=== PATIENT | male | born 2000 | race Caucasian/White ===

== ENCOUNTER 2024-08-06 21:09 | Observation (INO) ==
[2024-08-06 21:35] LABS: ABS Eosinophils 0.1 10^3/uL (0.0-0.5); ABS Lymphocytes 2.3 10^3/uL (1.0-4.8); ABS Monocytes 0.6 10^3/uL (0.0-1.1); ABS Neutrophils 4.7 10^3/uL (1.5-7.6); ABS Nucleated RBC 0.01 10^3/ul; Eosinophil % 1.5 %; Hematocrit 43.4 % (38-53); Hemoglobin 15.1 g/dL (13.2-16.3); Lymphocyte % 29.1 %; Mean Corpuscular Hemoglobin 31.7 pg (27-33); Mean Corpuscular Hgb Conc 34.9 g/dL (31-36); Mean Platelet Volume 7.4 fL (7.5-11.2); Nucleated Red Blood Cells % 0.1 %/100WBC (0.0-0.8); Platelet Count 210 10^3/uL (150-450); Red Blood Count 4.77 10^6/uL (4.06-5.63); Red Cell Distribution Width 12.9 % (12-17); White Blood Count 7.8 10^3/uL (3.6-10.2)
[2024-08-06 21:43] LABS: INR 1.21 (0.85-1.14)
[2024-08-06 21:52] LABS: High Sens Troponin Baseline < 3 pg/mL (<20)
[2024-08-06 21:58] LABS: ALT 17 U/L (7-52); AST 19 U/L (13-39); Albumin 4.6 g/dL (3.2-5.2); Albumin/Globulin Ratio 2.2 (1-3); Alkaline Phosphatase 54 U/L (35-149); Anion Gap 8 mmol/L (2-16); Blood Urea Nitrogen 9 mg/dL (6-24); CO2 Carbon Dioxide 27 mmol/L (22-32); Calcium 9.6 mg/dL (8.6-10.3); Chloride 101 mmol/L (101-111); Creatinine, Serum 0.82 mg/dL (0.67-1.17); Globulin 2.1 g/dL (2-4); Glucose 117 mg/dL (70-100); Potassium 3.8 mmol/L (3.5-5.0); Sodium 136 mmol/L (135-145); Total Bilirubin 0.7 mg/dL (0.2-1.0); Total Protein 6.7 g/dL (6.4-8.9); eGFR CKD-EPI 127.4 (>60)
[2024-08-06 23:03] LABS: High Sensitivity Troponin 1 Hr < 3 pg/mL (<20)
[2024-08-07 00:19] LABS: Lipase 11 U/L (11.0-82.0)
[2024-08-07] MEDS ORDERED: Polyethylene Glycol 3350 17 GM PACKET PO PRN (00:51)
[2024-08-07] MEDS ORDERED: Sulfur Hexaflouride MICROSPHR 25 MG VIAL IV PRN (00:58)
[2024-08-07] MEDS: Pantoprazole VIAL 40 MG VIAL IV SCH (01:33)
[2024-08-07 06:18] LABS: ABS Eosinophils 0.2 10^3/uL (0.0-0.5); ABS Monocytes 0.6 10^3/uL (0.0-1.1); ABS Neutrophils 4.2 10^3/uL (1.5-7.6); Eosinophil % 2.3 %; Hemoglobin 14.3 g/dL (13.2-16.3); Lymphocyte % 28.1 %; Mean Corpuscular Hemoglobin 31.9 pg (27-33); Mean Corpuscular Volume 91.2 fL (80-97); Mean Platelet Volume 7.5 fL (7.5-11.2); Platelet Count 198 10^3/uL (150-450)
[2024-08-07 07:23] LABS: TSH Ultra Thyroid Stim Horm 1.42 mcIU/mL (0.34-5.60)
[2024-08-07 07:44] LABS: Anion Gap 8 mmol/L (2-16); Blood Urea Nitrogen 10 mg/dL (6-24); C Reactive Protein < 1.00 mg/L (<8.01); CO2 Carbon Dioxide 29 mmol/L (22-32); Calcium 9.4 mg/dL (8.6-10.3); Chloride 102 mmol/L (101-111); Creatinine, Serum 0.87 mg/dL (0.67-1.17); Glucose 91 mg/dL (70-100); Potassium 4.3 mmol/L (3.5-5.0); Sodium 139 mmol/L (135-145); eGFR CKD-EPI 125.1 (>60)
[2024-08-07 08:25] LABS: Erythrocyte Sed Rate 4 mm/Hr (0-14)
[2024-08-07 11:56] VITALS: BP 124/72
== END 2024-08-07 11:54 | disposition home or self-care (01) ==
LOC: EDHOLD 21:09 → ED 21:09 → SUATTDRO 08-07 00:52 → EDHOLD 08-07 11:53
PROVIDERS: ADMIT Student in an Organized Health Care Education/Training Program; ATTEND Internal Medicine